=== PATIENT | female | born 1990 | race Caucasian/White ===

== ENCOUNTER 2023-08-10 19:39 | Emergency (ER) | payer OTHER, SELFPAY ==
[2023-08-10 19:47] VITALS: BP 138/106
[2023-08-10] MEDS: TYLENOL 1000 MG PO (20:38)
--- NOTE | 2023-08-10 22:57 | ED.GENMED ---
History of Present Illness
General
Chief Complaint: Head Injury
Source: patient
Exam Limitations: none
Time Seen by Provider: 08/10/23 19:54
Nursing documentation reviewed up to this point in time: agreed with
Travel History
Have you had any contact with someone who has COVID-19?: No
Do you have any symptoms of coronavirus? Fever > 100 degrees, chills, cough, shortness of breath, sore throat, loss of taste or smell, muscle aches, or headache?: No
History of Present Illness
History of Present Illness:
Patient states she was walking from parking lot to hospital and slipped and fell on grassy surface. Hit back of head on ground. No LOC. Able to get self up. Incident occurred just [employer]. COmplains of pain to posterior scalp,
Past History
Past History
ED Past Medical History: None
ED Past Surgical History: None
Review of Systems
Review of Systems
Allergies reviewed?: Yes
All Other Systems: ROS reviewed and negative except as documented in HPI and ROS
Constitutional: Reports no symptoms
Musculoskeletal: Reports no symptoms
Skin: Reports other (contusion posterior scalp)
Neurological: Reports headache
Psychiatric: Reports no symptoms
Phy Exam
General Physical Exam
General Presentation: well appearing and no apparent distress
General age: appears stated age
General Skin: warm and dry
General Habitus: normal
General Mental: alert
General Hydration: appears well hydrated
ENT Exam
ENT Exam: TM's normal, neck supple and normocephalic
Eye Exam
Eye Exam: PERRL, EOMI, conjunctiva normal and globe normal
Neurological Exam
Neurological Exam: alert, oriented x3, CN II-XII intact, no motor deficits, no sensory deficits, speech normal and normal gait
Eliu Coma Scale
Eye Opening: Spontaneous
Verbal Response: Oriented
Motor Response: Obeys Commands
GCS Total Score: 15
Mental
Mental Status: oriented to person, oriented to place, oriented to time and usual mental status
Describe Speech: normal speech
Cranial
Cranial Nerves: normal
EOM (CN3/4/6): intact
Motor
Seizure Activity: none
Gait: normal
Tremors: none
Other Movement Disorders: none
Right upper extremity: 4
Right lower extremity: 4
Left upper extremity: 4
Left lower extremity: 4
Bilateral upper extremities: 4
Bilateral lower extremities: 4
Sensory
Sensory Exam: intact
Cerebellar
Cerebellar Function: normal finger to nose, normal heel to davison and normal Romberg test
Musculoskeletal Exam
Musculoskeletal Exam: full ROM
Skin Exam
Skin Exam: normal color, warm/dry and no rash
Psychiatric Exam
Psychiatric Exam: normal mood/affect
Course
Orders/Labs/Results
Orders:
Orders
08/10/23 20:36
Acetaminophen [Tylenol] 1,000 mg PO NOW STA
Vital Signs
Initial and Last Documented VS:
Initial Vital Signs
Temp Pulse Resp BP Pulse Ox
98.5 F 76 18 138/106 97
08/10/23 19:47 08/10/23 19:47 08/10/23 19:47 08/10/23 19:47 08/10/23 19:47
Last Documented Vital Signs
Temp Pulse Resp BP Pulse Ox
98.5 F 76 18 138/106 97
08/10/23 19:47 08/10/23 19:47 08/10/23 19:47 08/10/23 19:47 08/10/23 19:47
*Critical Care Note
Total Time (30-74mins, 75-104mins- exclusive of procedures): Not Applicable
Update Note
Update Note:
Patient to ED s/p fall. Neuro exam unremarkable. I do not feel CT will add anything further. WIll discharge home. [facility] Given instructions on s/s to return to ED and she is agreeable to plan.
ED Attending Note
-
Portions of this chart may have been created with voice recognition software.� Occasional wrong word or��sound alike� substitutions may have occurred due to the inherent limitations of voice recognition software.
Discharge Plan
Departure
Patient Disposition: Home (Routine Discharge)
Date of Disposition: 08/10/23
Time of Disposition: 20:26
Patient with high blood pressure during this ER visit?: No
Condition: Fair
Covid-19: Not Applicable
Discharge Problem:
Head injury
Instructions: Head Injury in Adults (DC), Contusion (DC)
Referrals:
[facility] [[facility] - Tomorrow
Stand Alone Forms: Return to Work
Interventions
Interventions:
*Risk Screen - Suicide Last Done: 08/10/23 19:47
*Neglect/Abuse Screening Last Done: 08/10/23 19:47
*Nursing Disposition Last Done: 08/10/23 20:55
ED- Neurological Assessment Last Done: 08/10/23 20:13
ED-Skin Assessment Last Done: 08/10/23 20:13
Discharge Date and Time
Discharge Date/Time: 08/10/23 20:56
Print Language: DANISH
== END 2023-08-10 20:56 | disposition home or self-care (01) ==
LOC: EMR 19:39
PROVIDERS: EMERGENCY PHYSICIAN Emergency Medicine
DX: S09.90XA Unspecified injury of head, initial encounter (principal); W01.0XXA Fall on same level from slipping, tripping and stumbling without subsequent striking against object, initial encounter; Y99.0 Civilian activity done for income or pay
CPT/HCPCS: 99282